=== PATIENT | female | born 1945 | race Caucasian/White ===

== ENCOUNTER 2016-09-01 06:14 | Day surgery (SDC) | payer MEDICARE ==
[~2016-09-01 06:14] MED LIST: CEFAZOLIN 1 GM/D5W RTU 1 GM/50 ML RTUPB IV PRN; DEXTROSE 5%-1/2 NORMAL SALINE 1,000 ML IV PRN
[2016-09-01 07:08] LABS: ABSOLUTE EOSINOPHILS # (AUTO) 0.7 10^3/uL (0.0-0.6); ABSOLUTE LYMPHOCYTES (AUTO) 0.9 10^3/uL (0.5-4.7); ABSOLUTE MONOCYTES (AUTO) 0.3 10^3/uL (0.1-1.4); ABSOLUTE NEUT (AUTO) 2.2 10^3/uL (1.7-8.2); BASOPHILS % (AUTO) 1.2 % (0-2); EOSINOPHILS % (AUTO) 16.3 % (0-6); HEMATOCRIT 30.7 % (36.0-47.0); HEMOGLOBIN 10.2 g/dL (12.0-15.5); HGB HCT DIFFERENCE -0.1; LYMPHOCYTES % (AUTO) 20.9 % (13-45); MEAN CORPUSCULAR HEMOGLOBIN 29.1 pg (27.0-33.4); MEAN CORPUSCULAR HGB CONC 33.2 g/dL (32.0-36.0); MEAN CORPUSCULAR VOLUME 88 fl (80-97); MONOCYTES % (AUTO) 7.7 % (3-13); RED CELL DISTRIBUTION WIDTH 17.9 % (11.5-14.0); SEGMENTED NEUTROPHILS % (AUTO) 53.9 % (42-78); WHITE BLOOD COUNT 4.1 10^3/uL (4.0-10.5)
[2016-09-01 07:25] LABS: PARTIAL THROMBOPLASTIN TIME 47.2 SEC (23.5-35.8)
[2016-09-01] MEDS ORDERED: MIDAZOLAM 2 MG/2 ML INJ ONE (08:06)
[2016-09-01] MEDS ORDERED: FENTANYL CITRATE INJ/PF 100 MCG/2 ML AMPUL ONE (08:07)
--- NOTE | 2016-09-01 08:17 | EKG REPORT ---
SEVERITY:- ABNORMAL ECG - SINUS BRADYCARDIA LEFT VENTRICULAR HYPERTROPHY BORDERLINE T ABNORMALITIES, INFERIOR LEADS : Confirmed by: Raymond Vernon MD 01-Sep-2016 08:16:32
[2016-09-01] MEDS ORDERED: LIDOCAINE 0.5% INJ-PF (5 MG/ML) 50 ML SDV ONE (08:18)
[2016-09-01] MEDS ORDERED: BACITRACIN INJ 50,000 UNIT VIAL IR PRN (08:43)
--- NOTE | 2016-09-01 10:20 | PDOC DISCHARGE SUMMARY ---
Discharge Summary (SDC) - Discharge Final Diagnosis: #1 myeloma. #2 multiple comorbidities. Date of Surgery: 09/01/16 Discharge Date: 09/01/16 Condition: Fair Treatment or Instructions: #1 activities within moderation encouraged. #2 follow up in my office by appointment in about 1 week. Call for appointment. #3 the wounds covered clean and dry until office visit. #4 hold off on school/work until evaluation in office. #5 may shower in 48 hours, keep operated area as dry as possible. #6 discharge from ambulatory when ASU criteria met. #7 medications per medication reconciliation sheet. #8 Percocet by prescription.. Also may have one Percocet up to every 4 hours when necessary for pain greater than 4 out of 10 while in the ASU Prescriptions: Oxycodone HCl/Acetaminophen [Percocet 5-325 mg Tablet] 1 tab PO ASDIR PRN #15 tab PRN Reason: Discharge Diet: As Tolerated Respiratory Treatments at Home: Deep Breathing/Coughing Discharge Activity: Activity As Tolerated Report the Following to Your Physician Immediately: Shortness of Breath, Unusual Bleeding
[2016-09-01 11:50] VITALS: BP 164/65
--- NOTE | 2016-09-01 12:18 | Operative Report ---
Operative Report DATE OF SURGERY: 09/01/16 PREOPERATIVE DIAGNOSIS: #1 Multiple myeloma. #2 multiple comorbidities. POSTOPERATIVE DIAGNOSIS: #1 Multiple myeloma. #2 multiple comorbidities. OPERATION: #1 ultrasound evaluation of the right internal jugular vein. #2 insertion of right sided internal jugular based Port-A-Cath using real-time ultrasound guidance. #3 angiogram and interpretation. SURGEON: TOM MCKENNA LEAD SCIENTIST: none ANESTHESIA: Moderate Sedation TISSUE REMOVED OR ALTERED: None COMPLICATIONS: None ESTIMATED BLOOD LOSS: 5 mL. INTRAOPERATIVE FINDINGS: Satisfactory and apparently safe access into the right internal jugular vein. Good position of the catheter with the tip just slightly down in the right atrium. Easy egress of blood and ingress of heparinized solution through the single port. Contrast flowed from the catheter , into the right atrium. Hardcopy documentation preserved. PROCEDURE: After obtaining informed consent, the patient was taken to the Phlebotomist Lab Assistant and positioned supine. The [right] neck and chest were prepared with chlorhexidine and draped out with sterile linen. After the " universal timeout", in which it was verified that the patient continued to receive antibiotic, the procedure commenced. A steriley sheathed ultrasound probe was used to evaluate the [ right] internal jugular vein. Local anesthesia was infiltrated adjacent to the probe. Access into the [right] internal jugular vein was obtained using a micropuncture needle, followed by micropuncture wire and then a micropuncture catheter. This was followed by introduction of a 0.035 guidewire the tip of which was placed down into the inferior vena cava . The port sites was marked , locally anesthetized and incision made. Dissection now proceeded to the deep subcutaneous subcutaneous tissues so that a pocket for the port was made. Meticulous hemostasis was secured and the catheter was tunneled between the 2 incisions. Proximally, the catheter was now positioned using a peel-away sheath. Distally the catheter was tailored to an appropriate length and then mated to the port using the contained fixating device. The port was now placed in the pocket and the catheter optimally positioned. The port was accessed with a Vann needle and an angiogram done under digital subtraction. The findings as dictated. With adequate and satisfactory positioning, both lumens of the chamber were irrigated with heparinized solution. The wounds were now closed using interrupted 3-0 PDS to the subcutaneous tissues and a continuous subcuticular suture of 4-0 Monocryl to the skin. These are reinforced with Steri-Strips over benzoin and then dressings applied. Time: 0.1 Minute. Dose: 15 Gy Contrast: 5 mls. Isovue 300. Copies of the dictated operative report for Dr. Tom Zapata MD.
== END 2016-09-01 10:55 | disposition home or self-care (01) ==
LOC: CCL 06:14
PROVIDERS: ATTEND Surgery
PROC: 05HM33Z Insertion of Infusion Device into Right Internal Jugular Vein, Percutaneous Approach (ICD-10-PCS; principal; 2016-09-01)
DX: C90.00 Multiple myeloma not having achieved remission (principal); E03.9 Hypothyroidism, unspecified; F41.9 Anxiety disorder, unspecified; M19.90 Unspecified osteoarthritis, unspecified site; I12.9 Hypertensive chronic kidney disease with stage 1 through stage 4 chronic kidney disease, or unspecified chronic kidney disease; N18.9 Chronic kidney disease, unspecified; Z88.8 Allergy status to other drugs, medicaments and biological substances; Z86.73 Personal history of transient ischemic attack (TIA), and cerebral infarction without residual deficits; Z79.899 Other long term (current) drug therapy; Z79.01 Long term (current) use of anticoagulants
CPT/HCPCS: 36415; 85025; 85610; 85730; 36561; 76937; 77001; 71010; 93005; 93010; C1788; Q9967; J2250; J3490 ×2; J0690; J3010; J1644

== ENCOUNTER → 2016-09-23 | Outpatient (CLI) | payer MEDICARE | LOC: RAD 07:13 | PROVIDERS: ATTEND Specialist | DX: C90.00 Multiple myeloma not having achieved remission (principal) | CPT/HCPCS: 70470 ==

== ENCOUNTER → 2016-11-27 | Outpatient (CLI) | payer MEDICARE ==
--- NOTE | 2016-11-27 14:19 | RADIOLOGY REPORT (SQ) ---
EXAM DESCRIPTION: CHEST PA/LAT COMPLETED DATE/TIME: 11/27/2016 11:38 am REASON FOR STUDY: CHEST PAIN COMPARISON: AP chest 09/01/2016, 10/27/2014 EXAM PARAMETERS: NUMBER OF VIEWS: two views TECHNIQUE: Digital Frontal and Lateral radiographic views of the chest acquired. RADIATION DOSE: NA LIMITATIONS: none FINDINGS: LUNGS AND PLEURA: No opacities, masses or pneumothorax. No pleural effusion. MEDIASTINUM AND HILAR STRUCTURES: No masses or contour abnormalities. HEART AND VASCULAR STRUCTURES: Heart normal size. No evidence for failure. BONES: No acute findings. HARDWARE: Right jugular central line tip superior vena cava. Clips right upper quadrant post cholecy stectomy OTHER: No other significant finding. IMPRESSION: NO SIGNIFICANT RADIOGRAPHIC FINDING IN THE CHEST. TECHNICAL DOCUMENTATION: JOB ID: [id number] [employer]- All Rights Reserved
== END ==
LOC: RAD 11:18
PROVIDERS: ATTEND Internal Medicine
DX: R07.9 Chest pain, unspecified (principal)
CPT/HCPCS: 71020

== ENCOUNTER → 2016-12-15 | Outpatient (CLI) | payer MEDICARE ==
--- NOTE | 2016-12-15 20:09 | XCELERA REPORT ---
[address] [address] Transthoracic Echocardiogram Report Name: BERONICA AVILES Age: 71 yrs Gender: Female : 1945 Patient Status: Outpatient Patient Location: RAD Study Date: 12/15/2016 11:19 AM Height: 65 in Weight: 166 lb BSA: 1.8 m2 Reason For Study: DYSPNEA Ordering Physician: ANYA RODRIGUEZ Performed By: Saira Argueta Interpretation Summary calcified aortic annulus, not enlarged, aortic sinus 39mm. MIld AV sclerosis, no , but mod AR with no LV enlargement. Mild mitral annular calcification with thickened leaflets, no MS, no MVP and mild MR with mod LA enlargement, RODRIGUE 44.8ml/m2, no LA clot. Mild asymmetric septal hypertrophy of LV with mild hypokinesis, Overall LVEF about 60%, with stage I LV diastolic dysfunction. Normal R heart, with no pulm hypertension. mild TR. RVSP 21. ASD/PFO with min L to R shunt. MMode/2D Measurements \T\ Calculations RVDd: 2.3 cm LVIDd: 5.1 cm FS: 30.4 % Ao root diam: IVSd: 1.2 cm LVIDs: 3.5 cm EDV(Teich): 3.7 cm LVPWd: 1.1 cm 123.6 ml Ao root area: ESV(Teich): 52.5 ml 10.7 cm2 EF(Teich): LA dimension: 57.5 % 3.7 cm LVOT diam: 2.3 cm LA A2Cs: LA A4Cs: LA length: 6.2 cm LVOT area: 4.2 cm2 19.6 cm2 28.4 cm2 LA Vol Index (BP): LA Volume: 76.3 ml 41.8 ml/m2 Doppler Measurements \T\ Calculations MV E max toan: MV P1/2t max toan: Ao V2 max: AI max toan: 63.7 cm/sec 64.2 cm/sec 105.9 cm/sec 352.9 cm/sec MV A max toan: MV P1/2t: 56.6 msec Ao max PG: AI max P.7 cm/sec MVA(P1/2t): 3.9 cm2 4.5 mmHg 49.8 mmHg MV E/A: 0.63 MV dec slope: HUGO(V,D): 4.2 cm2 AI dec slope: 131.6 cm/sec2 332.3 cm/sec2 AI P1/2t: 785.7 msec LV V1 max PG: PA V2 max: TR max toan: 4.4 mmHg 100.7 cm/sec 230.2 cm/sec LV V1 max: PA max P.1 mmHg TR max P.6 cm/sec 21.2 mmHg Left Ventricle The left ventricle is normal in size. There is mild asymmetric left ventricular hypertrophy. The left ventricular ejection fraction is normal. Doppler measurements suggest impaired left ventricular relaxation, which is associated with grade I/IV or mild diastolic dysfunction. There is anteroseptal wall mild hypokinesis. There is no thrombus. Right Ventricle The right ventricle is normal in size, thickness and function. The right ventricular systolic function is normal. Atria The right atrium is normal. The left atrial size is normal. A patent foramen ovale is present. Mitral Valve The mitral valve is normal in structure and function. The mitral valve leaflets are sclerotic and show some degree of functional abnormality. There is no evidence of mitral valve prolapse. There is no mitral valve stenosis. There is a trace amount of mitral regurgitation. Aortic Valve The aortic valve is sclerotic and shows some degree of functional abnormality. The aortic valve opens well. The aortic valve is trileaflet. The aortic valve is moderately calcified. There is no aortic valvular vegetation. There is no aortic valve stenosis. There is a moderate amount of aortic regurgitation. Tricuspid Valve The tricuspid is normal in structure and function. There is no tricuspid valve prolapse. There is no tricuspid stenosis. Right ventricular systolic pressure is normal. There is a mild amount of tricuspid regurgitation. Best estimated RVSP is approximately 21 mm/Hg. Pulmonic Valve The pulmonic valve is not well visualized. There is no pulmonic valvular regurgitation. Great Vessels The aortic root is normal size. Effusions There is no pericardial effusion. There is no pleural effusion. I WMSI = 1.31 % Normal = 69 Segments Size X - Cannot 1 - Normal 2 - 3 - Akinetic4 - 1-2 small Interpret Hypokinetic Dyskinetic 3-5 moderate 5 - 6-14 large Aneurysmal 15-16 diffuse : ANYA RODRIGUEZ > Raymond Vernon
== END ==
LOC: RAD 10:50
PROVIDERS: ATTEND Student in an Organized Health Care Education/Training Program
DX: C90.00 Multiple myeloma not having achieved remission (principal); R06.09 Other forms of dyspnea
CPT/HCPCS: 93306

== ENCOUNTER → 2016-12-16 | Outpatient (CLI) | payer MEDICARE ==
--- NOTE | 2016-12-16 16:52 | RADIOLOGY REPORT (SQ) ---
EXAM DESCRIPTION: BONE SURVEY COMPLETE COMPLETED DATE/TIME: 12/16/2016 11:23 am REASON FOR STUDY: MYELOMA C90.00 MULTIPLE MYELOMA NOT HAVING ACHIEVED REMISSION COMPARISON: 04/29/2016. TECHNIQUE: Images of the axial and proximal appendicular skeleton are obtained, along with lateral s kull and frontal chest films. LIMITATIONS: None. FINDINGS: AP CHEST: No bony findings. Lungs are clear. LATERAL SKULL: No worrisome bone lesions. AP BOTH HUMERI: No worrisome bone lesions. TWO-VIEW LUMBAR SPINE: No worrisome bone lesions. TWO-VIEW THORACIC SPINE: No worrisome bone lesions. AP PELVIS: No worrisome bone lesions. AP BOTH FEMURS: No worrisome bone lesions. OTHER: Mild general osteopenia. No other significant finding. IMPRESSION: MILD GENERAL OSTEOPENIA. NO WORRISOME BONE LESIONS. TECHNICAL DOCUMENTATION: JOB ID: [id number] [employer]- All Rights Reserved
== END ==
LOC: RAD 10:45
PROVIDERS: ATTEND Internal Medicine Medical Oncology
DX: C90.00 Multiple myeloma not having achieved remission (principal)
CPT/HCPCS: 77075

== ENCOUNTER 2017-02-14 12:05 | Emergency (ER) | payer MEDICARE ==
--- NOTE | 2017-02-14 12:36 | ER Document Report ---
ED Medical Screen (RME) - General Chief Complaint: Weakness Stated Complaint: FALL/WEAKNESS Time Seen by Provider: 02/14/17 12:19 Mode of Arrival: Wheelchair Information source: Patient, Relative Notes: 72-year-old female history of multiple myeloma on Coumadin presents with complaints of generalized weakness dark stools multiple falls I have greeted and performed a rapid initial assessment of this patient. A comprehensive ED assessment and evaluation of the patient, analysis of test results and completion of the medical decision making process will be conducted by additional ED providers. PHYSICAL EXAMINATION: GENERAL: elderly chronically ill appearing HEAD: right frontal contusion EYES: Pupils equal round extraocular movements intact, conjunctiva are normal. ENT: Nares patent NECK: Normal range of motion LUNGS: No respiratory distress Musculoskeletal: Normal range of motion NEUROLOGICAL: Normal speech, normal gait. PSYCH: Normal mood, normal affect. SKIN: Warm, Dry, normal turgor, no rashes or lesions noted. TRAVEL OUTSIDE OF THE [place] IN LAST 30 DAYS: No - Related Data Allergies/Adverse Reactions: promethazine HCl [From Phenergan] Allergy (Verified 02/14/17 12:11) Past Medical History - Past Medical History Cardiac Medical History: Reports: Hx Coronary Artery Disease, Hx Hypercholesterolemia, Hx Hypertension, Hx Heart Murmur Denies: Hx Heart Attack Pulmonary Medical History: Reports: Hx Asthma, Hx Sleep Apnea Denies: Hx Bronchitis, Hx COPD, Hx Pneumonia Neurological Medical History: Reports: Hx Cerebrovascular Accident - X 2. Denies: Hx Seizures Endocrine Medical History: Reports: Hx Hypothyroidism Renal/ Medical History: Reports: Hx Renal Insufficiency. Denies: Hx Peritoneal Dialysis GI Medical History: Reports: Hx Diverticulitis, Hx Gastroesophageal Reflux Disease, Hx Colonoscopy, Hx Endoscopy Musculoskeltal Medical History: Reports Hx Arthritis - B/L HANDS, KNEES, FEET Psychiatric Medical History: Reports: Hx Anxiety, Hx Depression Past Surgical History: Reports: Hx Breast Surgery - RIGHT LUMPECTOMY, Hx Cholecystectomy, Hx Hysterectomy - Immunizations Hx Diphtheria, Pertussis, Tetanus Vaccination: Yes Physical Exam - Vital signs Vitals: Temp Pulse Resp BP Pulse Ox 98.5 F 52 L 20 122/72 100 02/14/17 12:12 02/14/17 12:12 02/14/17 12:12 02/14/17 12:12 02/14/17 12:12 Course - Vital Signs Vital signs: Temp Pulse Resp BP Pulse Ox 98.5 F 52 L 20 122/72 100 02/14/17 12:12 02/14/17 12:12 02/14/17 12:12 02/14/17 12:12 02/14/17 12:12
[2017-02-14 13:14] LABS: APPEARANCE,URINE SLIGHTLY-CLOUDY; BILIRUBIN,URINE NEGATIVE (NEGATIVE); GLUCOSE, URINE NEGATIVE (NEGATIVE); KETONES,URINE NEGATIVE (NEGATIVE); LEUKOCYTE ESTERASE,URINE TRACE (NEGATIVE); NITRITE,URINE NEGATIVE (NEGATIVE); PROTEIN,URINE 30 mg/dL (NEGATIVE); URINE SPECIFIC GRAVITY 1.008; UROBILINOGEN,URINE NEGATIVE mg/dL (<2.0)
[2017-02-14 13:45] LABS: ABSOLUTE EOSINOPHILS # (AUTO) 0.6 10^3/uL (0.0-0.6); ABSOLUTE LYMPHOCYTES (AUTO) 1.1 10^3/uL (0.5-4.7); ABSOLUTE MONOCYTES (AUTO) 0.8 10^3/uL (0.1-1.4); ABSOLUTE NEUT (AUTO) 2.5 10^3/uL (1.7-8.2); BASOPHILS % (AUTO) 0.5 % (0-2); EOSINOPHILS % (AUTO) 12.5 % (0-6); HEMATOCRIT 27.8 % (36.0-47.0); HEMOGLOBIN 9.3 g/dL (12.0-15.5); HGB HCT DIFFERENCE 0.1; LYMPHOCYTES % (AUTO) 21.5 % (13-45); MEAN CORPUSCULAR HEMOGLOBIN 30.7 pg (27.0-33.4); MEAN CORPUSCULAR HGB CONC 33.6 g/dL (32.0-36.0); MEAN CORPUSCULAR VOLUME 91 fl (80-97); MONOCYTES % (AUTO) 15.7 % (3-13); RED BLOOD COUNT 3.04 10^6/uL (3.72-5.28); RED CELL DISTRIBUTION WIDTH 15.7 % (11.5-14.0); SEGMENTED NEUTROPHILS % (AUTO) 49.8 % (42-78)
[2017-02-14 13:56] LABS: PROTHROMBIN TIME 16.3 SEC (11.4-15.4)
[2017-02-14 14:02] LABS: ALANINE AMINOTRANSFERASE 11 U/L (9-52); ALBUMIN 2.9 g/dL (3.5-5.0); ALKALINE PHOSPHATASE 54 U/L (38-126); ANION GAP 10 (5-19); ASPARTATE AMINO TRANSFERASE 14 U/L (14-36); BILIRUBIN,DIRECT 0.4 mg/dL (0.0-0.4); BILIRUBIN,TOTAL 0.6 mg/dL (0.2-1.3); BLOOD UREA NITROGEN 19 mg/dL (7-20); CALCIUM 8.5 mg/dL (8.4-10.2); CARBON DIOXIDE 24 mmol/L (22-30); CHLORIDE 104 mmol/L (98-107); CREATININE RESULT 1.27 mg/dL (0.52-1.25); GLUCOSE 107 mg/dL (75-110); TOTAL PROTEIN 5.1 g/dL (6.3-8.2)
[2017-02-14 14:08] LABS: POTASSIUM 3.1 mmol/L (3.6-5.0)
--- NOTE | 2017-02-14 14:20 | ER Document Report ---
ED General - General Mode of Arrival: Wheelchair Information source: Patient, Relative TRAVEL OUTSIDE OF THE [place] IN LAST 30 DAYS: No - HPI Onset: Other - see narrative Associated symptoms: Other - see narrative Similar symptoms previously: Yes Recently seen / treated by doctor: Yes <YANNA BECK - Last Filed: 02/14/17 14:59> <LORENA MIRELES - Last Filed: 02/14/17 17:30> - General Chief Complaint: Weakness Stated Complaint: FALL/WEAKNESS Time Seen by Provider: 02/14/17 12:19 Notes: Patient is a 72-year-old female who presents to the emergency department today with complaints of generalized weakness. Patient states she has been having frequent diarrhea, around 15 times a day. Patient states she has had chronic diarrhea for a long time, over 1 year. Patient has multiple myeloma and is currently on chemotherapy. Patient states she received 2 bags of fluid 2 days ago at a routine oncology visit. Patient states she has had multiple recent falls, hitting her head on the last one. Patient is on Coumadin. Patient also complains of a rash. Patient denies a cough. (YANNA BECK) - Related Data Allergies/Adverse Reactions: promethazine HCl [From Phenergan] Allergy (Verified 02/14/17 12:11) Past Medical History - General Information source: Patient, Relative - Social History Smoking Status: Former Smoker Cigarette use (# per day): No Chew tobacco use (# tins/day): No Frequency of alcohol use: None Drug Abuse: None Lives with: Family Family History: CAD, Malignancy - Past Medical History Cardiac Medical History: Reports: Hx Coronary Artery Disease, Hx Hypercholesterolemia, Hx Hypertension, Hx Heart Murmur Pulmonary Medical History: Reports: Hx Asthma, Hx Sleep Apnea Neurological Medical History: Reports: Hx Cerebrovascular Accident - X 2 Endocrine Medical History: Reports: Hx Hypothyroidism Renal/ Medical History: Reports: Hx Renal Insufficiency GI Medical History: Reports: Hx Diverticulitis, Hx Gastroesophageal Reflux Disease, Hx Colonoscopy, Hx Endoscopy Musculoskeltal Medical History: Reports Hx Arthritis - B/L HANDS, KNEES, FEET Psychiatric Medical History: Reports: Hx Anxiety, Hx Depression Past Surgical History: Reports: Hx Breast Surgery - RIGHT LUMPECTOMY, Hx Cholecystectomy, Hx Hysterectomy - Immunizations Hx Diphtheria, Pertussis, Tetanus Vaccination: Yes Hx Pneumococcal Vaccination: 03/25/14 <YANNA BECK - Last Filed: 02/14/17 14:59> Review of Systems - Review of Systems Constitutional: See HPI, Weakness EENT: See HPI, Nose congestion Cardiovascular: No symptoms reported Respiratory: denies: Cough Gastrointestinal: See HPI, Diarrhea Genitourinary: No symptoms reported Female Genitourinary: No symptoms reported Musculoskeletal: No symptoms reported Skin: See HPI, Rash Hematologic/Lymphatic: No symptoms reported Neurological/Psychological: No symptoms reported -: Yes All other systems reviewed and negative <YANNA BECK - Last Filed: 02/14/17 14:59> Physical Exam - Vital signs Interpretation: Normal - General General appearance: Alert, Other - appears at baseline according to family at bedside - HEENT Head: Normocephalic, Other - see skin exam Eyes: Normal Pupils: PERRL - Respiratory Respiratory status: No respiratory distress Chest status: Nontender Breath sounds: Normal Chest palpation: Normal - Cardiovascular Rhythm: Regular Heart sounds: Normal auscultation Murmur: No - Abdominal Inspection: Normal Distension: No distension Bowel sounds: Normal Tenderness: Nontender Organomegaly: No organomegaly - Back Back: Normal, Nontender - Extremities General upper extremity: Normal ROM, Other - see skin exam. No: Edema General lower extremity: Normal inspection, Normal ROM. No: Edema - Neurological Neuro grossly intact: Yes Cognition: Normal Orientation: AAOx4 [place] Coma Scale Eye Opening: Spontaneous [place] Coma Scale Verbal: Oriented [place] Coma Scale Motor: Obeys Commands [place] Coma Scale Total: 15 Speech: Normal - Psychological Associated symptoms: Normal affect, Normal mood <YANNA BECK - Last Filed: 02/14/17 14:59> <LORENA MIRELES - Last Filed: 02/14/17 17:30> - Vital signs Vitals: Temp Pulse Resp BP Pulse Ox 98.5 F 52 L 20 122/72 100 02/14/17 12:12 02/14/17 12:12 02/14/17 12:12 02/14/17 12:12 02/14/17 12:12 - Skin Notes: Contusion with central abrasion over right forehead. Linear contusion over right dorsal radial forearm with small central skin tear. Small area on upper anterior chest of mild erythema, which appears to be a superficial sunburn, patient states it does not itch. (YANNA BCEK) Course - Laboratory Result Diagrams: 02/14/17 13:34 02/14/17 13:34 <YANNA BECK - Last Filed: 02/14/17 14:59> - Laboratory Result Diagrams: 02/14/17 13:34 02/14/17 13:34 - Diagnostic Test Radiology reviewed: Image reviewed, Reports reviewed - See reevaluation description above <LORENA MIRELES - Last Filed: 02/14/17 17:30> - Re-evaluation Re-evalutation: 02/14/17 17:02 The patient's exam showed a minor contusion to the right forehead, her INR was only 1.23, her CT scan showed air-fluid levels in both ethmoids, both maxillary sinuses, and the left sphenoid sinus. All this is a new finding since October 08, 2016. Chest x-ray does not show acute changes. Thumb shows a small avulsion fracture off the dorsal base of the proximal phalanx at the MCP joint. The patient is on amoxicillin for an upper respiratory tract infection which should be adequate for her sinus disease. She used to take an allergy pill, but stopped when she used CPAP thinking she did not need it. Advised the family that something like Mel might be worthwhile given the amount of sinus disease she has developed. Her urine specific gravity is 1.008, her BUN and creatinine are at or better than her baseline, her white blood cell count is not elevated and does not have a shift. Her potassium level is a little low and she will be encouraged to increase potassium intake. She will take copies of her lab work, x-ray CT scans and reports and follow-up with her primary care provider this week. 02/14/17 17:29 The thumb spica splint was placed on the right forearm wrist hand and thumb to protect the dorsal avulsion fracture of the proximal phalanx at the MCP joint. Bacitracin and Telfa pads were placed prior to cotton roll over the minor skin tears on the dorsal forearm. Splint fits well and provide some level of comfort and good stability at the fracture site. (LORENA MIRELES) - Vital Signs Vital signs: Temp Pulse Resp BP Pulse Ox 98.5 F 52 L 16 116/41 L 96 02/14/17 12:12 02/14/17 12:12 02/14/17 16:40 02/14/17 16:40 02/14/17 16:40 - Laboratory Laboratory results interpreted by me: 02/14/17 02/14/17 02/14/17 12:50 13:34 13:34 RBC 3.04 L Hgb 9.3 L Hct 27.8 L RDW 15.7 H Monocytes % 15.7 H Eosinophils % 12.5 H PT Potassium 3.1 L Creatinine 1.27 H Est GFR ( Amer) 50 L Est GFR (Non-Af Amer) 41 L Total Protein 5.1 L Albumin 2.9 L Urine Protein 30 H Ur Leukocyte Esterase TRACE H 02/14/17 13:34 RBC Hgb Hct RDW Monocytes % Eosinophils % PT 16.3 H Potassium Creatinine Est GFR ( Amer) Est GFR (Non-Af Amer) Total Protein Albumin Urine Protein Ur Leukocyte Esterase Discharge <YANNA BECK - Last Filed: 02/14/17 14:59> <LORENA MIRELES - Last Filed: 02/14/17 17:30> - Discharge Clinical Impression: Generalized weakness, Frequent falls, Inadequate anticoagulation, Subacute pansinusitis, Hypokalemia Fracture of thumb, right, closed Qualifiers: Encounter type: initial encounter Phalanx: proximal Fracture alignment: nondisplaced Qualified Code(s): S62.514A - Nondisplaced fracture of proximal phalanx of right thumb, initial encounter for closed fracture Condition: Stable Disposition: HOME, SELF-CARE Additional Instructions: The CT scan of your head showed extensive sinus disease which is new since September 2016. He should remain on your amoxicillin for this at this time. Your INR was 1.23 today, be sure not to miss your Coumadin dosing and stop vitamin K supplements and foods that have vitamin K. Your potassium was low at 3.1 today, you should increase potassium in your diet for the next several days. You have an avulsion fracture on the dorsal base of the right thumb. This was splinted to protect it to allow it to heal properly. Take the CD of your x-rays and scans and the radiology report, and the lab work with you to see your doctor this week for further evaluation. RETURN TO THE EMERGENCY ROOM IF ANY NEW OR WORSENING SYMPTOMS. Referrals: NAILA DICK MD [Primary Care Provider] - Follow up as needed NARESH EASTON MD [NO LOCAL MD] - Follow up in 3-5 days Scribe Attestation: 02/14/17 17:01 I personally performed the services described in the documentation, reviewed and edited the documentation which was dictated to the scribe in my presence, and it accurately records my words and actions. (LORENA MIRELES) Scribe Documentation - Scribe Written by Scribe:: Servando Levy, 02/14/2017 1512 acting as scribe for :: Lexus <YANNA BECK - Last Filed: 02/14/17 14:59>
[2017-02-14] MEDS ORDERED: NORMAL SALINE 1000 ML 1,000 ML IV ONE (14:40)
[2017-02-14] MEDS ORDERED: ONDANSETRON HCL INJ/PF 4 MG/2 ML SDV IV ONE (14:40)
[2017-02-14] MEDS ORDERED: ACETAMINOPHEN 325 MG TABLET PO ONE (14:41)
--- NOTE | 2017-02-14 15:37 | RADIOLOGY REPORT (SQ) ---
EXAM DESCRIPTION: CT HEAD WITHOUT COMPLETED DATE/TIME: 02/14/2017 3:19 pm REASON FOR STUDY: fall, hit head, on coumadin COMPARISON: CT brain 06/04/2014, 06/05/2014, 09/23/2016 TECHNIQUE: Axial images acquired through the brain without intravenous contrast. Images reviewed wi th bone, brain and subdural windows. Images stored on PACS. All CT scanners at this facility use dose modulation, iterative reconstruction, and/or weight based d osing when appropriate to reduce radiation dose to as low as reasonably achievable (ALARA). [facility]: Dose Right [facility]: CareDose [facility]: Dose Right [facility]: Teradose 4D [facility]: Smart 99degrees Custom RADIATION DOSE: Up-to-date CT equipment and radiation dose reduction techniques were employed. CTDIv ol: 49.0 mGy. DLP: 881 mGy-cm. mGy. LIMITATIONS: None. FINDINGS: VENTRICLES: Normal size and contour. CEREBRUM: No CT evidence of acute large territory ischemic change, acute intracranial hemorrhage, mas s effect, or midline shift. Old stable lacunar infarcts in the right and left basal ganglia. CEREBELLUM: No masses. No hemorrhage. No alteration of density. No evidence for acute infarction. EXTRAAXIAL SPACES: No fluid collections. No masses. ORBITS AND GLOBE: No intra- or extraconal masses. Normal contour of globe without masses. CALVARIUM: No fracture. PARANASAL SINUSES: There are air-fluid levels in the bilateral ethmoid, left sphenoid, and bilateral maxillary sinuses from sinusitis SOFT TISSUES: No mass or hematoma. OTHER: No other significant finding. IMPRESSION: Sinusitis No acute intracranial changes EVIDENCE OF ACUTE STROKE: NO. COMMENT: Quality ID # [id number]: Final reports with documentation of one or more dose reduction techniques (e.g., Automated exposure control, adjustment of the mA and/or kV according to patient size, use of iterative reconstruction technique) TECHNICAL DOCUMENTATION: JOB ID: [id number] [employer]- All Rights Reserved
--- NOTE | 2017-02-14 15:45 | RADIOLOGY REPORT (SQ) ---
EXAM DESCRIPTION: FINGER RIGHT COMPLETED DATE/TIME: 02/14/2017 3:34 pm REASON FOR STUDY: R thumb injury from fall COMPARISON: None. NUMBER OF VIEWS: Three views. TECHNIQUE: AP, lateral, and oblique images acquired of the right thumb. LIMITATIONS: None. FINDINGS: Three views of the right thumb. Bones are osteopenic. There is an avulsion fragment off the dorsal base thumb proximal phalanx, marked on the lateral view with an arrow. No other fractures are identified. Advanced osteoarthritis is present at the thumb interphalangeal j oint and metacarpophalangeal joint. There is soft tissue swelling at the 1st MCP joint. IMPRESSION: Small avulsion fragment off the dorsal base thumb proximal phalanx at the MCP joint. COMMENT: SITE OF TRAUMA/COMPLAINT MARKED/STAMP COMPLETED: Yes TECHNICAL DOCUMENTATION: JOB ID: [id number] [email or web address]- All Rights Reserved
--- NOTE | 2017-02-14 17:04 | RADIOLOGY REPORT (SQ) ---
EXAM DESCRIPTION: CHEST SINGLE VIEW COMPLETED DATE/TIME: 02/14/2017 4:44 pm REASON FOR STUDY: cough, weakness COMPARISON: 11/27/2016 EXAM PARAMETERS: NUMBER OF VIEWS: One view. TECHNIQUE: Single frontal radiographic view of the chest acquired. RADIATION DOSE: NA LIMITATIONS: None. FINDINGS: LUNGS AND PLEURA: No opacities, masses or pneumothorax. No pleural effusion. MEDIASTINUM AND HILAR STRUCTURES: No masses. Contour normal. HEART AND VASCULAR STRUCTURES: Heart normal in size. Normal vasculature. BONES: No acute findings. HARDWARE: Port-A-Cath is unchanged in position OTHER: No other significant finding. IMPRESSION: No significant interval change. No acute findings. Other findings as noted above TECHNICAL DOCUMENTATION: JOB ID: [id number]
[2017-02-14 17:41] VITALS: BP 117/47
== END 2017-02-14 17:41 | disposition home or self-care (01) ==
LOC: ER 12:05
DX: J32.4 Chronic pansinusitis (principal); E87.6 Hypokalemia; R53.1 Weakness; R19.7 Diarrhea, unspecified; Z91.81 History of falling; Z87.891 Personal history of nicotine dependence; Z79.01 Long term (current) use of anticoagulants; W19.XXXA Unspecified fall, initial encounter
CPT/HCPCS: 36591; 99285; 96374; 86900; 86901; 36415; 87040; 86850; 85025; 85610; 80053; 81001; 71010; 73140; 70450; A9270; J2405; J7030

== ENCOUNTER → 2017-07-01 | Outpatient (CLI) | payer MEDICARE ==
--- NOTE | 2017-07-01 11:52 | RADIOLOGY REPORT (SQ) ---
EXAM DESCRIPTION: CT CHEST WITH; CT ABDOMEN IV CONTRAST ONLY COMPLETED DATE/TIME: 07/01/2017 11:19 am REASON FOR STUDY: C90.00 MULTIPLE MYELOMA NOT HAVING ACHIEVED REMISSION C90.00 MULTIPLE MYELOMA NOT HAVING ACHIEVED REMISSION R63.4 ABNORMAL WEIGHT LOSS COMPARISON: Bone survey 12/16/2016, 04/29/2016, 08/24/2015, 05/03/2014 CONTRAST TYPE AND DOSE: contrast/concentration: Isovue 370.00 mg/ml; Total Contrast Delivered: 66.0 ml; Total Saline Delivered: 65.0 ml RENAL FUNCTION: Creatinine 1.4 TECHNIQUE: CT scan of the chest performed using helical scanning technique with dynamic intravenous contrast injection. Images reviewed with lung, soft tissue and bone windows. Reconstructed coronal a nd sagittal MPR images reviewed. All images stored on PACS. CT scan of the abdomen performed with intravenous and without oral contrastusing helical scanning mickey hnique with dynamic intravenous contrast injection. Images reviewed with lung, soft tissue and bone windows. Reconstructed coronal and sagittal MPR images reviewed. Delayed images for evaluation of t he urinary system also acquired and evaluated. All images stored on PACS. All CT scanners at this facility use dose modulation, iterative reconstruction, and/or weight based d osing when appropriate to reduce radiation dose to as low as reasonably achievable (ALARA). [facility]: Dose Right [facility]: CareDose [facility]: Dose Right [facility]: Teradose 4D [facility]: Smart [employer] RADIATION DOSE: CT Rad equipment meets quality standard of care and radiation dose reduction techniq ues were employed. CTDIvol: 4.6 - 6.5 mGy. DLP: 611 mGy-cm. . LIMITATIONS: None. FINDINGS: CHEST: LUNGS AND PLEURA: No opacities, nodules, masses. No pneumothorax. No effusions. HILAR AND MEDIASTINAL STRUCTURES: No identified masses or abnormal nodes. HEART AND VASCULAR STRUCTURES: Mild ectasia, descending thoracic aorta 3.8 cm in diameter. No aortic dissection. No central pulmonary emboli. No pericardial effusion. Incidental finding of an aberra nt right subclavian artery, an anatomic variant HARDWARE: Right-sided permanent central line tip superior vena cava THYROID AND OTHER SOFT TISSUES: No masses. No adenopathy. BONES: No significant finding. OTHER: No other significant finding. ABDOMEN AND PELVIS: LIVER: Normal size. No masses. No dilated ducts. SPLEEN: Normal size. No focal lesions. PANCREAS: No masses. No significant calcifications. No adjacent inflammation or peripancreatic fluid collections. Pancreatic duct not dilated. GALLBLADDER: Surgically absent ADRENAL GLANDS: No significant masses or asymmetry. RIGHT KIDNEY AND URETER: No solid masses. 1 cm right upper pole cortical cyst, 2.4 cm right lower po le cortical cyst. No significant calcification. No hydronephrosis or hydroureter. LEFT KIDNEY AND URETER: No solid masses. No significant calcification. No hydronephrosis or hydrouret er. AORTA AND VESSELS: No aneurysm. No dissection. Renal arteries, SMA, celiac without stenosis. RETROPERITONEUM: No retroperitoneal adenopathy, hemorrhage or masses. BOWEL AND PERITONEAL CAVITY: No masses or inflammatory changes. No free fluid or peritoneal masses. APPENDIX: Not in the field of view ABDOMINAL WALL: No masses. No hernias. BONES: No lytic lesions. There is minimal central upper endplate depression at T12 and L1, new salvatore red to bone survey 12/16/2016. OTHER: No other significant finding. IMPRESSION: Minimal central upper endplate depressions at T12 and L1 without overall vertebral body loss of height. These could be subacute or chronic osteoporotic compressions. Otherwise unremarkable CT scan of the chest and abdomen TECHNICAL DOCUMENTATION: JOB ID: [id number] Quality ID # [id number]: Final reports with documentation of one or more dose reduction techniques (e.g., Au tomated exposure control, adjustment of the mA and/or kV according to patient size, use of iterative reconstruction technique) 2010 [employer]- All Rights Reserved
== END ==
LOC: RAD 10:33
PROVIDERS: ATTEND Internal Medicine Medical Oncology
DX: C90.00 Multiple myeloma not having achieved remission (principal); R63.4 Abnormal weight loss
CPT/HCPCS: 71260; 74160

== ENCOUNTER → 2017-09-29 | Outpatient (CLI) | payer MEDICARE ==
--- NOTE | 2017-09-29 14:30 | RADIOLOGY REPORT (SQ) ---
EXAM DESCRIPTION: LUMBAR SPINE 2 VIEWS COMPLETED DATE/TIME: 09/29/2017 11:39 am REASON FOR STUDY: MULTIPLE MYELOMA IN REMISSION, FUNCTIONAL DIARRHEA C90.01 MULTIPLE MYELOMA IN REM ISSION K59.1 FUNCTIONAL DIARRHEA COMPARISON: 08/15/2014 NUMBER OF VIEWS: Two views. TECHNIQUE: AP and lateral radiographic images acquired of the lumbar spine. LIMITATIONS: None. FINDINGS: Chronic height loss of L5. Alignment is anatomic. No lytic lesions. Mild degenerative c hanges. IMPRESSION: Degenerative change. No lytic lesions. TECHNICAL DOCUMENTATION: JOB ID: [id number] [employer]- All Rights Reserved Reading location - IP/workstation name: [email or web address]
--- NOTE | 2017-09-29 14:31 | RADIOLOGY REPORT (SQ) ---
EXAM DESCRIPTION: T SPINE AP/LAT COMPLETED DATE/TIME: 09/29/2017 11:39 am REASON FOR STUDY: MULTIPLE MYELOMA IN REMISSION, FUNCTIONAL DIARRHEA C90.01 MULTIPLE MYELOMA IN REM ISSION K59.1 FUNCTIONAL DIARRHEA COMPARISON: None. NUMBER OF VIEWS: Two views. TECHNIQUE: AP and lateral radiographic images acquired of the thoracic spine. LIMITATIONS: None. FINDINGS: MINERALIZATION: Osteopenia. ALIGNMENT: Normal. No scoliosis. VERTEBRAE: No fracture or bone lesion. Maintained height, normal segmentation. DISCS: Multilevel disc space narrowing with osteophytes. HARDWARE: None in the spine. MEDIASTINUM AND SOFT TISSUES: Normal heart size and aortic contour. No soft tissue abnormality. VISUALIZED LUNG ALMEIDA: Clear. OTHER: Right-sided port tip overlying SVC. IMPRESSION: No lytic lesions. TECHNICAL DOCUMENTATION: JOB ID: [id number] [employer]- All Rights Reserved Reading location - IP/workstation name: [email or web address]
== END ==
LOC: OD 11:10
PROVIDERS: ATTEND Internal Medicine Medical Oncology
DX: C90.01 Multiple myeloma in remission (principal); K59.1 Functional diarrhea; M47.896 Other spondylosis, lumbar region
CPT/HCPCS: 72070; 72100

== ENCOUNTER → 2018-06-13 | Outpatient (CLI) | payer MEDICARE ==
--- NOTE | 2018-06-14 08:10 | RADIOLOGY REPORT (SQ) ---
EXAM DESCRIPTION: PET CT WHOLE BODY COMPLETED DATE/TIME: 06/13/2018 6:36 pm REASON FOR STUDY: MULTIPLE MYELOMA C90.01 MULTIPLE MYELOMA IN REMISSION COMPARISON: CT chest and abdomen 07/01/2017 RADIONUCLIDE AND DOSE: 11.3 mCi F18 FDG The route of agent administration: Intravenous FASTING BLOOD SUGAR: 90 mg/dl CONTRAST TYPE AND DOSE: No CT contrast given. TECHNIQUE: Blood glucose level was verified. Above dose of FDG was injected intravenously. 2-D seg mented attenuation correction images were obtained through the entire body. Noncontrast CT images we re obtained for attenuation correction and fusion with emission images. CT images were performed wit hout oral or intravenous contrast and are not sensitive for parenchymal lesions. A series of overlap ping emission PET images were obtained. Images reviewed and manipulated at independent work station by the radiologist. Images stored on PACS. LIMITATIONS: None. FINDINGS: HEAD AND NECK: No areas of abnormal metabolic activity in the soft tissues of the head and neck. CHEST: No areas of abnormal metabolic activity in the chest. ABDOMEN AND PELVIS: No areas of abnormal metabolic activity in the abdomen or pelvis. Expected physi ologic activity is present in the genitourinary system and bowel. LOWER EXTREMITIES: No areas of abnormal metabolic activity in the soft tissues of the lower extremiti es. BONES: No abnormal metabolic activity in the visualized skeleton. ADDITIONAL CT FINDINGS: A aberrant right subclavian artery, an anatomic variant. Stable ectasia prox imal descending thoracic aorta, 3.8 cm in diameter. Right permanent central line. Post cholecystect santino appendectomy and hysterectomy. Right lower pole 2.4 cm simple cyst. OTHER: No other significant findings. IMPRESSION: No skeletal uptake worrisome for multiple myeloma. TECHNICAL DOCUMENTATION: JOB ID: [id number]- All Rights Reserved Reading location - IP/workstation name: [email or web address]
== END ==
LOC: RAD 14:43
PROVIDERS: ATTEND Internal Medicine Medical Oncology
DX: C90.01 Multiple myeloma in remission (principal)
CPT/HCPCS: 78816; A9552

== ENCOUNTER 2018-08-16 11:08 | Day surgery (SDC) | payer MEDICARE ==
[~2018-08-16 11:08] MED LIST changes: -CEFAZOLIN 1 GM/D5W RTU 1 GM/50 ML RTUPB IV PRN; -DEXTROSE 5%-1/2 NORMAL SALINE 1,000 ML IV PRN; +PROPOFOL INJ 200 MG/20 ML VIAL IV ONE
[2018-08-16] MEDS ORDERED: NORMAL SALINE 10 ML SDV (AFTER EACH USE) IV PRN (12:00)
--- NOTE | 2018-08-16 13:08 | Operative Report ---
Operative Report DATE OF SURGERY: 08/16/18 Operative Report: The risks benefits and alternatives of the procedure explained to the patient in detail and informed consent is obtained.A GIF Olympus video scope was inserted into the patient's mouth and hypopharynx, the esophagus is identified intubated and insufflated, the scope was then advanced through the esophagus stomach and duodenum, retroflexion maneuver is done, the esophagus stomach and first and second portions of the duodenum examined. PREOPERATIVE DIAGNOSIS: Epigastric pain. History of GI bleeding POSTOPERATIVE DIAGNOSIS: Gastric erosion, gastritis status post biopsy rule out Helicobacter pylori OPERATION: EGD with biopsy SURGEON: SARAH THOMSNO ANESTHESIA: LMAC TISSUE REMOVED OR ALTERED: As noted above. COMPLICATIONS: None. ESTIMATED BLOOD LOSS: None. INTRAOPERATIVE FINDINGS: As noted above. PROCEDURE: Patient tolerated the procedure well. No immediate postprocedure complications are noted. Patient discharged in good condition. Discharge date 08/16/2018. Discharge diet: Regular. Discharge activity: Regular. 2-3-week follow-up to discuss findings. Patient is instructed call the office or proceed to the emergency room should there be any further proximal questions. If there is any persistent bleeding then colonoscopy is indicated.
[2018-08-16 14:21] VITALS: BP 177/60
[2018-08-16] MEDS ORDERED: NORMAL SALINE 10 ML SDV (SCHEDULED) IV SCH (22:00)
== END 2018-08-16 12:52 | disposition home or self-care (01) ==
LOC: END 11:08
PROVIDERS: ATTEND Internal Medicine Gastroenterology
DX: K25.0 Acute gastric ulcer with hemorrhage (principal); K29.50 Unspecified chronic gastritis without bleeding; D50.9 Iron deficiency anemia, unspecified; C90.01 Multiple myeloma in remission; Z86.73 Personal history of transient ischemic attack (TIA), and cerebral infarction without residual deficits
CPT/HCPCS: 43239; 88305 ×2; J2704; 731

== ENCOUNTER 2019-04-12 23:21 | Inpatient (IN) | payer MEDICARE ==
--- NOTE | 2019-04-12 23:38 | ER Document Report ---
ED Neuro Symptoms/Deficit - General Chief Complaint: S/S of Possible Stroke Stated Complaint: POSS STROKE Time Seen by Provider: 04/12/19 23:25 Mode of Arrival: Stretcher Information source: Patient, Emergency Med Personnel TRAVEL OUTSIDE OF THE [place] IN LAST 30 DAYS: No - HPI Patient complains to provider of: Facial Droop, Speech Impairment, Weakness Onset: Just prior to arrival Symptoms are: Intermittent episodes Duration: Gone now Severity: Moderate Loss of consciousness: No loss of consciousness Baseline Cognitive: Alert, oriented X 3 Baseline Gait: Uses a cane/walker Pre-existing weakness: Lower extremity - Left leg due to old CVA. Patient Orientation: Person, Place, Time, Events New weakness: RUE Altered sensation: denies: LUE, LLE, RUE, RLE, L facial, R facial, General (diffuse) Impaired speech/swallowing: Difficult - Totally resolved now Similar symptoms previously: Yes - Yesterday Notes: Patient has had a past stroke several years ago and has some minimal residual motor impairment restricted to her left lower extremity. She ambulates with a cane. She has had symptoms what sound like TIAs yesterday and again tonight. By the time she got here tonight her new symptoms have totally resolved. She complains of a minimal dull generalized headache. Patient says she regularly takes Eliquis and has been compliant with this medication. Pertinent past history includes a history of multiple myeloma. - Related Data Allergies/Adverse Reactions: promethazine HCl [From Phenergan] Allergy (Verified 12/03/18 14:38) Past Medical History - General Information source: Patient, Emergency Med Personnel - Social History Smoking Status: Never Smoker Family History: CAD, CVA, Malignancy - Past Medical History Cardiac Medical History: Reports: Hx Hypercholesterolemia, Hx Hypertension, Hx Heart Murmur Denies: Hx Coronary Artery Disease, Hx Heart Attack Pulmonary Medical History: Reports: Hx Asthma - MILD, HAS INHALER, LAST USED APPROX 6M AGO, Hx Sleep Apnea Denies: Hx Bronchitis, Hx COPD, Hx Pneumonia Neurological Medical History: Reports: Hx Cerebrovascular Accident - X2, MAY 2014, vision deficit L eye, slower movement on L . Denies: Hx Seizures Endocrine Medical History: Reports: Hx Hypothyroidism Renal/ Medical History: Reports: Hx Renal Insufficiency. Denies: Hx Peritoneal Dialysis Malignancy Medical History: Reports: Other - Multiple myeloma GI Medical History: Reports: Hx Diverticulitis, Hx Gastroesophageal Reflux Disease, Hx Colonoscopy, Hx Endoscopy Musculoskeletal Medical History: Reports Hx Arthritis - OSTEOARTHRITIS Psychiatric Medical History: Reports: Hx Anxiety, Hx Depression Past Surgical History: Reports: Hx Breast Surgery - RIGHT LUMPECTOMY, Hx Cholecystectomy, Hx Hysterectomy - Immunizations Hx Diphtheria, Pertussis, Tetanus Vaccination: - UNKNOWN Hx Pneumococcal Vaccination: 03/25/14 Review of Systems - Review of Systems Notes: Constitutional: Negative for fever. HENT: Negative for sore throat. Eyes: Negative for visual changes. Cardiovascular: Negative for chest pain. Respiratory: Negative for shortness of breath. Gastrointestinal: Negative for abdominal pain, vomiting or diarrhea. Genitourinary: Negative for dysuria. Musculoskeletal: Negative for back pain. Skin: Negative for rash. Neurological: As per HPI. 10 point ROS negative except as marked above and in HPI. Physical Exam - Vital signs Notes: GENERAL: Elderly female appearing in no acute distress. She is awake and alert with fluent speech. SKIN: Good turgor no rashes. HEAD: Normocephalic atraumatic. EYES: PERRLA. Conjunctivae and sclerae clear. EARS: CANALS AND TMS CLEAR. NOSE: CLEAR. MOUTH: Moist mucosa. Good dentition. No stridor or edema. No drooling. Throat: Clear. Gag intact. NECK: Supple. No masses or thyromegaly. No adenopathy. Carotids 2+ without bruits. No JVD. BACK: Symmetrical without tenderness. CHEST: Respirations unlabored. Breath sounds clear and symmetrical. HEART: Regular rhythm. Grade 2/6 systolic murmur without gallop or rub. ABDOMEN: Soft nontender without masses, organomegaly or rebound. Bowel sounds normally active. No bruits. GENITALIA: Deferred. EXTREMITIES: Advanced degenerative changes interphalangeal joints of both hands no edema. No calf tenderness. Cap refill less than 1.5 seconds. Dorsalis pedis and posterior tibial pulses 3+ and symmetrical. NEUROLOGICAL: GCS 15. Alert and oriented x3. Normal gait. Fluent speech without slurring. Cranial nerves II through XII intact. Sensation is intact throughout. Muscular strength is 5/5 both upper extremities and right lower extremity. Muscular strength is 4/5 left lower extremity which patient attrib utes to prior stroke baseline. Normal tone. Psychiatric: Appropriate affect. Course - Re-evaluation Re-evalutation: 04/12/19 23:41 Current episode appears to be a TIA and I would be concerned about garland TIAs given the history of a similar episode yesterday for which she apparently did not choose to seek medical attention. Clinically I do not believe she has had a new stroke. We are getting a stat noncontrast head CT on the stroke protocol and will examine the patient serially. 04/13/19 01:01 Patient will be admitted and is to have a brain MRI. She IS NOT a candidate for TPA as this appears primarily to be a TIA. - Laboratory Result Diagrams: 04/12/19 23:35 04/12/19 23:35 - Diagnostic Test Radiology reviewed: Reports reviewed - EKG Interpretation by Me EKG shows normal: Sinus rhythm Rate: Bradycardia Additional EKG results interpreted by me: 04/13/19 00:01 Changes consistent with LVH unchanged as compared with prior tracing from 12/03/2018. ED Alteplase Inc/Exc Criteria - Inclusion Criteria: 1: Patient presented to ED within 3 hours of acute ischemic stroke symptom onset? 2: Did baseline CT exclude intracranial hemorrhage and/or other risk factors? 3: Is the age of the patient 18 years of age or greater? : If any of the above questions are answered "NO" then stop, patient is not a candidate for Alteplase, : If all of the above questions are answered "YES" then continue with Exclusion Criteria. - Exclusion Criteria: 1: Is there evidence of intracranial hemorrhage on baseline CT? 2: Is there suspicion of subarachnoid hemorrhage (even if CT negative)? 3: Is there a history of serious head trauma, recent previous stroke or LA within 3 months? 4: Does the patient have a clinical presentation consistent with LA or post-LA pericarditis? 5: Is there history of intracranial hemorrhage? 6: On repeated measurement is Systolic BP greater than 185mmHg or Diastolic BP greater that 110 mmHg and is aggressive treatment needed to reduce blood pressure to these limits (e.g. constant infusion of an anti-hypertensive)? 7: Did the patient awake with stroke symptoms? 8: Has the patient had a lumbar puncture or an arterial puncture at a non- compressile site within 7 days? 9: With in the last 14 days did the patient have surgery or major trauma? 10: Is the patient or less than 2 weeks? 11: Was there any active bleeding or acute trauma? 12: Does the patient have intracranial neoplasm, arteriovenous malformation or aneurysm? 13: Does the patient have abnormal glucose (less than 50 or greater than 400mg/dl)? Record glucose in Comment. 14: Patient has rapidly improving symptoms at the time Alteplase is to be Administered. 15: Does the patient have any risks for bleeding, including but not limited to: a.: Current use of Coumadin with PT greater than 15 seconds or INR greater than 1.7. b.: Current use of Pradaxa (Dabigatran). c.: Heparin administereed within the past 48 hours and PTT elevated. d.: Platelet count less than 100,000/mm. e.: Major surgery or serious trauma within 14 days. f.: Gastrointestinal or gynecological urinary bleeding within 14 days. g.: Myocardial Infarction (LA) within 3 months. : If the answer to any of the above questions is "YES" then stop, the patient is not a candidate for Alteplase. : If the answer to all of the above questions is "NO" then the patient may be eligible for the Administration of Alteplase. : If the patient is noted to have seizure activity at onset of Stroke symptoms; Consult Neurologist for further evaluation. - The patient is: -: Included and is eligible to receive Alteplase. *Initiate bed placement at higher level of care* Reviewed risks & benefits of thrombolytic therapy: I have reviewed the risks and benefits of thrombolytic therapy with the patient and/or his/her family. -: Excluded and not eligible to receive Alteplase for the above exclusions. -: Excluded and not eligible to receive Alteplase for other reasons (specify in comments): - Diagnosis of TIA: -: Patient presented with transient symptoms that are now resolved and no other neurologic findings are currently present. List symptoms in comments. -: Yes -: Patient is NOT a candidate for tPA. -: Yes -: ____(put name in comment) has been consulted for admission and continued evaluation of risk factor assessment. Comment: Dr. Santino Soares will admit Discharge - Discharge Clinical Impression: TIA (transient ischemic attack) Condition: Serious Disposition: ADMITTED INPATIENT Admitting Provider: Rodger (Hospitalist) Unit Admitted: [facility]
[2019-04-12] MEDS ORDERED: CLONIDINE HCL 0.2 MG TABLET PO ONE (23:47)
[2019-04-12] MEDS ORDERED: OXYCODONE-ACETAMINOPHEN 5-325 MG TABLET PO ONE (23:48)
[2019-04-12 23:52] LABS: ABSOLUTE EOSINOPHILS # (AUTO) 0.1 10^3/uL (0.0-0.6); ABSOLUTE MONOCYTES (AUTO) 0.5 10^3/uL (0.1-1.4); ABSOLUTE NEUT (AUTO) 2.8 10^3/uL (1.7-8.2); BASOPHILS % (AUTO) 0.6 % (0-2); EOSINOPHILS % (AUTO) 1.6 % (0-6); HEMATOCRIT 33.5 % (36.0-47.0); HEMOGLOBIN 10.9 g/dL (12.0-15.5); LYMPHOCYTES % (AUTO) 36.9 % (13-45); MEAN CORPUSCULAR HEMOGLOBIN 29.2 pg (27.0-33.4); MEAN CORPUSCULAR HGB CONC 32.6 g/dL (32.0-36.0); MEAN CORPUSCULAR VOLUME 90 fl (80-97); MONOCYTES % (AUTO) 8.5 % (3-13); PLATELET COUNT 160 10^3/uL (150-450); RED BLOOD COUNT 3.74 10^6/uL (3.72-5.28); RED CELL DISTRIBUTION WIDTH 14.1 % (11.5-14.0); SEGMENTED NEUTROPHILS % (AUTO) 52.4 % (42-78); TOTAL CELLS COUNTED % (AUTO) 100 %; WHITE BLOOD COUNT 5.4 10^3/uL (4.0-10.5)
--- NOTE | 2019-04-12 23:54 | RADIOLOGY REPORT (SQ) ---
EXAM DESCRIPTION: RadLex: CT HEAD WITHOUT IV CONTRAST CLINICAL HISTORY: 74 years Female; s/s stroke; right-sided weakness TECHNIQUE: Noncontrast CT head. All CT scans at this facility use dose modulation, iterative reconstruction, and/or weight based dosing when appropriate to reduce radiation dose to as low as reasonably achievable. COMPARISON: CT 12/03/2018 FINDINGS: Old focal infarct in the right occipital lobe is again noted. There is also an old lacunar infarct in the posterior limb of the right internal capsule and adjacent to the left caudate head. No acute hemorrhage or mass effect. There is a very subtle 4 mm hypodensity in the posterior limb of the left internal capsule that was not present on the prior exam. Visualized portions of paranasal sinuses and mastoids are clear. Visualized portions of the calvarium are within normal limits. THIS REPORT CONTAINS FINDINGS THAT MAY BE CRITICAL TO PATIENT CARE: The findings were verbally discussed via telephone conference with GABBI MCCARTY at 10:49 PM CRNP on 04/12/2019 . IMPRESSION: 1. No acute hemorrhage or mass effect 2. Subtle 4 mm hypodensity in the posterior limb of the left internal capsule may represent an acute or subacute lacunar infarct. MRI would provide more definitive characterization. 3. Old basal ganglia infarcts and right occipital infarct, as seen on prior exam.
[2019-04-12 23:59] LABS: INTERNATIONAL RATION (INR) 1.44; PROTHROMBIN TIME 17.6 SEC (11.4-15.4)
[2019-04-13] LABS: ALKALINE PHOSPHATASE 62 U/L (38-126); ANION GAP 10 (5-19); ASPARTATE AMINO TRANSFERASE 33 U/L (14-36); BILIRUBIN,DIRECT 0.2 mg/dL (0.0-0.4); BILIRUBIN,TOTAL 0.4 mg/dL (0.2-1.3); BLOOD UREA NITROGEN 23 mg/dL (7-20); CALCIUM 9.1 mg/dL (8.4-10.2); CARBON DIOXIDE 26 mmol/L (22-30); CHLORIDE 109 mmol/L (98-107); CREATINE KINASE 50 U/L (30-135); GLUCOSE 103 mg/dL (75-110); PARTIAL THROMBOPLASTIN TIME 40.1 SEC (23.5-35.8); POTASSIUM 3.7 mmol/L (3.6-5.0); TOTAL PROTEIN 6.6 g/dL (6.3-8.2)
--- NOTE | 2019-04-13 00:05 | RADIOLOGY REPORT (SQ) ---
EXAM DESCRIPTION: RadLex: XR CHEST 1 VIEW CLINICAL HISTORY: 74 years Female, s/s stroke COMPARISON: 02/14/2017 FINDINGS: Lungs are clear, with no focal infiltrate, pneumothorax, or pleural effusion. No pulmonary nodules. There is mild right apical scarring, unchanged. Right IJ port remains in place, tip in the SVC. There is minimal aortic calcification. Heart size is normal. No mediastinal widening. Bony structures are unremarkable. IMPRESSION: 1. No acute pulmonary findings. 2. Right IJ port, tip in the SVC, as on prior exam.
[2019-04-13 00:22] LABS: CREATINE KINASE MB 1.53 ng/mL (<4.55)
[2019-04-13 00:25] LABS: TROPONIN I < 0.012 ng/mL
[2019-04-13] MEDS ORDERED: DOCUSATE SODIUM 100 MG CAPSULE PO PRN (00:54)
[2019-04-13] MEDS ORDERED: MAGNESIUM HYDROXIDE SUSP 30 ML UDCUP PO PRN (00:54)
[2019-04-13] MEDS ORDERED: ACETAMINOPHEN 325 MG TABLET PO PRN (00:54)
[2019-04-13] MEDS ORDERED: HYDRALAZINE HCL INJ/PF 20 MG/1 ML SDV IV PRN (00:59)
[2019-04-13] MEDS ORDERED: ATORVASTATIN CALCIUM 80 MG TABLET PO SCH ×2 (01:00→22:00)
[2019-04-13] MEDS ORDERED: ATORVASTATIN CALCIUM 80 MG TABLET PO ONE (01:30)
--- NOTE | 2019-04-13 06:27 | PDOC H&P ---
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 Patient presents to the emergency room after an episode of slurred speech and left lower extremity weakness starting 12 hours prior to presentation. She denies missing Xarelto or regular medications. She presents 12 hours after the onset of slurred speech and left-sided weakness. With a systolic blood pressure in the 180s. CBC, total protein, calcium is unremarkable. She receives aspirin and referred to the hospitalist for admission. Patient states her symptoms are improving. Past Medical History Cardiac Medical History: Reports: Hyperlipidema, Hypertension, Heart Murmur Denies: Coronary Artery Disease, Myocardial Infarction Pulmonary Medical History: Reports: Asthma - MILD, HAS INHALER, LAST USED APPROX 6M AGO, Sleep Apnea Denies: Bronchitis, Chronic Obstructive Pulmonary Disease (COPD), Pneumonia Neurological Medical History: Denies: Seizures Endocrine Medical History: Reports: Hypothyroidism Malignancy Medical History: Reports: Other - Multiple myeloma GI Medical History: Reports: Diverticulitis, Gastroesophageal Reflux Disease Musculoskeltal Medical History: Reports: Arthritis - OSTEOARTHRITIS Psychiatric Medical History: Reports: Depression Hematology: Reports: Anemia - IRON INFUSION X2 JUL 13 Past Surgical History Past Surgical History: Reports: Cholecystectomy, Hysterectomy Social History Information Source: Patient Smoking Status: Never Smoker Electronic Cigarette use?: No Frequency of Alcohol Use: None Hx Recreational Drug Use: No Hx Prescription Drug Abuse: No - Advance Directive Resuscitation Status: Full Code Family History Family History: CAD, CVA, Malignancy Parental Family History Reviewed: Yes Children Family History Reviewed: Yes Sibling(s) Family History Reviewed.: Yes Medication/Allergy Home Medications: Temazepam 15 mg PO QPM 09/02/14 Rivaroxaban [Xarelto] 20 mg PO QHS 08/13/18 Albuterol Sulfate [Proair Hfa Inhalation Aerosol 8.5 gm Mdi] 2 puff IH PRN PRN 08/16/18 Losartan Potassium [Cozaar 100 mg Tablet] 100 mg PO DAILY 08/16/18 Atenolol [Tenormin 50 mg Tablet] 75 mg PO QAM 04/13/19 Duloxetine HCl [Cymbalta] 60 mg PO QAM 04/13/19 Levothyroxine Sodium [Synthroid 0.075 mg Tablet] 0.075 mg PO QAM 04/13/19 Valacyclovir HCl [Valtrex 500 Mg Tablet] 500 mg PO QAM 04/13/19 Allergies/Adverse Reactions: promethazine HCl [From Phenergan] Allergy (Intermediate, Verified 04/13/19 01:20) Review of Systems Constitutional: ABSENT: chills, fever(s), headache(s), weight gain, weight loss Eyes: ABSENT: visual disturbances Ears: ABSENT: hearing changes Cardiovascular: ABSENT: chest pain, dyspnea on exertion, edema, orthropnea, palpitations Respiratory: ABSENT: cough, hemoptysis Gastrointestinal: ABSENT: abdominal pain, constipation, diarrhea, hematemesis, hematochezia, nausea, vomiting Genitourinary: ABSENT: dysuria, hematuria Musculoskeletal: ABSENT: joint swelling Integumentary: ABSENT: rash, wounds Neurological: ABSENT: abnormal gait, abnormal speech, confusion, dizziness, focal weakness, syncope Psychiatric: ABSENT: anxiety, depression, homidical ideation, suicidal ideation Endocrine: ABSENT: cold intolerance, heat intolerance, polydipsia, polyuria Hematologic/Lymphatic: ABSENT: easy bleeding, easy bruising Physical Exam Vital Signs: Temp Pulse Resp BP Pulse Ox 97.8 F 44 L 14 164/55 H 96 04/12/19 23:40 04/12/19 23:31 04/13/19 05:01 04/13/19 05:01 04/13/19 05:01 Intake & Output 04/11/19 04/12/19 04/13/19 11:59 11:59 11:59 Weight 72.7 kg General appearance: PRESENT: no acute distress, cooperative, well-developed, well-nourished Head exam: PRESENT: atraumatic, normocephalic Eye exam: PRESENT: conjunctiva pink, EOMI, PERRLA. ABSENT: scleral icterus Ear exam: PRESENT: normal external ear exam Mouth exam: PRESENT: moist, tongue midline Neck exam: ABSENT: carotid bruit, JVD, lymphadenopathy, thyromegaly Respiratory exam: PRESENT: clear to auscultation olesya. ABSENT: rales, rhonchi, wheezes Cardiovascular exam: PRESENT: RRR. ABSENT: diastolic murmur, rubs, systolic murmur Pulses: PRESENT: normal dorsalis pedis pul Vascular exam: PRESENT: normal capillary refill GI/Abdominal exam: PRESENT: normal bowel sounds, soft. ABSENT: distended, guarding, mass, organolmegaly, rebound, tenderness Rectal exam: PRESENT: deferred Extremities exam: PRESENT: full ROM, other - 4+ out of 5 strength in the left side. ABSENT: calf tenderness, clubbing, pedal edema Neurological exam: PRESENT: alert, awake, oriented to person, oriented to place, oriented to time, oriented to situation, CN II-XII grossly intact, other - 4+ out of 5 strength in the left side. ABSENT: motor sensory deficit, aphasic Psychiatric exam: PRESENT: appropriate affect, normal mood. ABSENT: homicidal ideation, suicidal ideation Skin exam: PRESENT: dry, intact, warm. ABSENT: cyanosis, rash Results Laboratory Results: 04/12/19 23:35 04/12/19 23:35 04/12/19 04/12/19 23:35 23:35 WBC 5.4 RBC 3.74 Hgb 10.9 L Hct 33.5 L MCV 90 MCH 29.2 MCHC 32.6 RDW 14.1 H Plt Count 160 Seg Neutrophils % 52.4 Sodium 144.9 Potassium 3.7 Chloride 109 H Carbon Dioxide 26 Anion Gap 10 BUN 23 H Creatinine 1.55 H Est GFR ( Amer) 39 L Glucose 103 Calcium 9.1 Total Bilirubin 0.4 AST 33 Alkaline Phosphatase 62 Total Protein 6.6 Albumin 4.0 04/12/19 04/12/19 23:35 23:35 Creatine Kinase 50 CK-MB (CK-2) 1.53 Troponin I < 0.012 Impressions: Chest X-Ray 04/12/19 23:22 IMPRESSION: 1. No acute pulmonary findings. 2. Right IJ port, tip in the SVC, as on prior exam. Head CT 04/12/19 23:22 IMPRESSION: 1. No acute hemorrhage or mass effect 2. Subtle 4 mm hypodensity in the posterior limb of the left internal capsule may represent an acute or subacute lacunar infarct. MRI would provide more definitive characterization. 3. Old basal ganglia infarcts and right occipital infarct, as seen on prior exam. Assessment and Plan - Diagnosis (1) TIA (transient ischemic attack) Is this a current diagnosis for this admission?: Yes Plan: CVA care set deployed, likely secondary to hypertension, aspirin, Lipitor ordered, follow-up MRI and carotid Doppler (2) Hypertension Is this a current diagnosis for this admission?: Yes Plan: Permissive hypertension (3) Bradycardia Is this a current diagnosis for this admission?: Yes Plan: Avoid rate limiting medication, follow telemetry monitoring (4) CKD (chronic kidney disease) stage 3, GFR 30-59 ml/min Is this a current diagnosis for this admission?: Yes Plan: At baseline avoid nephrotoxic meds and doses, follow-up chemistry - Time Time Spent with patient: 25-34 minutes - Inpatient Certification Medical Necessity: Need Close Monitoring Due to Risk of Patient Decompensation
[2019-04-13 07:13] LABS: APPEARANCE,URINE CLEAR; BILIRUBIN,URINE NEGATIVE (NEGATIVE); COLOR,URINE STRAW; GLUCOSE, URINE NEGATIVE (NEGATIVE); KETONES,URINE NEGATIVE (NEGATIVE); LEUKOCYTE ESTERASE,URINE TRACE (NEGATIVE); NITRITE,URINE NEGATIVE (NEGATIVE); PROTEIN,URINE NEGATIVE (NEGATIVE); URINE SPECIFIC GRAVITY 1.006; UROBILINOGEN,URINE NEGATIVE mg/dL (<2.0)
--- NOTE | 2019-04-13 07:42 | EKG REPORT ---
SEVERITY:- ABNORMAL ECG - SINUS BRADYCARDIA 42 LVH WITH SECONDARY REPOLARIZATION ABNORMALITY : Confirmed by: Raymond Vernon MD 13-Apr-2019 07:41:50
--- NOTE | 2019-04-13 11:00 | RADIOLOGY REPORT (SQ) ---
EXAM DESCRIPTION: MRI HEAD WITHOUT COMPLETED DATE/TIME: 04/13/2019 8:47 am REASON FOR STUDY: cva COMPARISON: MRI of the brain without contrast from a 06/04/2014. TECHNIQUE: Multiplanar imaging includes non-contrasted T1, T2, FLAIR, and diffusion with ADC map seq uences. Images stored on PACS. LIMITATIONS: None. FINDINGS: There is no restricted diffusion on the DWI. The confluent areas of high T2/FLAIR signal within the supratentorial periventricular and subcortical white matter are unchanged and could repres ent the sequela of chronic microvascular ischemia. The foci of high T2/FLAIR signal within the basal ganglia represent chronic lacunar infarcts. There is no blooming artifact on the gradient sequence. There is no extra-axial fluid collection, mass, mass effect or midline shift. There is no effaceme nt of cerebral sulci or basal subarachnoid cisterns. The mazariegos-white matter differentiation is preser jas. The caliber of the ventricles is concordant with the degree of sulcation. The corpus callosum, craniocervical junction, and sella turcica are normal in appearance. The intracranial vascular flow voids are preserved. The orbits and globes are normal in appearance. There is hyperostosis frontalis interna. The high T2 signal within the right frontal bone is unchange d from 06/04/2014. IMPRESSION: Sequela of chronic ischemia without an acute intracranial abnormality. EVIDENCE OF ACUTE STROKE: NO. TECHNICAL DOCUMENTATION: JOB ID: [id number] [employer]- All Rights Reserved Reading location - IP/workstation name: [email or web address]
[2019-04-13 13:57] VITALS: BP 102/74
--- NOTE | 2019-04-13 15:01 | RADIOLOGY REPORT (SQ) ---
EXAM DESCRIPTION: CAROTID DOPPLER COMPLETED DATE/TIME: 04/13/2019 1:44 pm REASON FOR STUDY: cva COMPARISON: MRI brain 04/21/2019 CT brain 04/12/2019, 12/03/2018 Carotid Doppler 06/05/2014 TECHNIQUE: Grayscale ultrasound, Doppler velocity and spectra, and color Doppler images acquired of the extra-cranial carotid and vertebral arteries. Images stored on PACS. LIMITATIONS: None. FINDINGS: RIGHT CAROTID CCA Velocities: Within normal limits. ICA Velocities Peak systolic 0.86 m/s. End diastolic 0.23 m/s. Proximal ICA/CCA peak systolic ratio normal. Spectra normal. No significant plaque. LEFT CAROTID CCA Velocities: Within normal limits. ICA Velocities Peak systolic 0.97 m/s. End diastolic 0.17 m/s. Proximal ICA/CCA peak systolic ratio normal. Spectra normal. No significant plaque. VERTEBRAL ARTERIES: Antegrade flow. Normal waveforms. SUBCLAVIAN ARTERIES: Not evaluated OTHER: No other significant finding. IMPRESSION: NO HEMODYNAMICALLY SIGNIFICANT STENOSIS. COMMENT: Quality ID #[id number]: Velocity criteria are extrapolated from the diameter data as defined by t he Society of Radiologists in Ultrasound Consensus Conference. Radiology 2003: 229; 340-346. TECHNICAL DOCUMENTATION: JOB ID: [id number] [employer]- All Rights Reserved Reading location - IP/workstation name: [email or web address]
--- NOTE | 2019-04-17 17:28 | PDOC DISCHARGE SUMMARY ---
Impression - Admit/DC Date/PCP Admission Date/Primary Care Provider: 04/13/19 01:27 NARESH EASTON MD Discharge Date: 04/13/19 - Discharge Diagnosis (1) Bradycardia Is this a current diagnosis for this admission?: Yes (2) Hypertension Is this a current diagnosis for this admission?: Yes (3) TIA (transient ischemic attack) Is this a current diagnosis for this admission?: Yes (4) CKD (chronic kidney disease) stage 3, GFR 30-59 ml/min Is this a current diagnosis for this admission?: Yes - Additional Information Resuscitation Status: Full Code Discharge Diet: Cardiac, Diabetic Discharge Activity: Activity As Tolerated, Balance Activity w/Rest Referrals: NARESH EASTON MD [Primary Care Provider] - 04/20/19 10:30 am Home Medications: Temazepam 15 mg PO QHS 09/02/14 Rivaroxaban [Xarelto] 20 mg PO QHS 08/13/18 Albuterol Sulfate [Proair HFA Inhalation Aerosol 8.5 gm MDI] 2 puff IH PRN PRN 08/16/18 Losartan Potassium [Cozaar 100 mg Tablet] 100 mg PO DAILY 08/16/18 Acetaminophen [Tylenol 325 mg Tablet] 650 mg PO Q4HP PRN tablet 04/13/19 Atenolol [Tenormin 50 mg Tablet] 75 mg PO DAILY 04/13/19 Cyanocobalamin (Vitamin B-12) [Vitamin B12] 2,500 mcg PO DAILY 04/13/19 Duloxetine HCl [Cymbalta] 60 mg PO DAILY 04/13/19 Levothyroxine Sodium [Synthroid 0.075 mg Tablet] 0.075 mg PO Q6AM 04/13/19 Valacyclovir HCl [Valtrex 500 mg Tablet] 500 mg PO DAILY 04/13/19 History of Present Illiness History of Present Illness: Per H&P by Dr. 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 Patient presents to the emergency room after an episode of slurred speech and left lower extremity weakness starting 12 hours prior to presentation. She denies missing Xarelto or regular medications. She presents 12 hours after the onset of slurred speech and left-sided weakness. With a systolic blood pressure in the 180s. CBC, total protein, calcium is unremarkable. She receives aspirin and referred to the hospitalist for admission. Patient states her symptoms are improving. Hospital Course Hospital Course: The patient was admitted to [facility] on continuous cardiac telemetry. Her symptoms of slurred speech and left-sided weakness resolved rapidly: Per patient and family within 1 hour of onset. Carotid Doppler was negative for hemodynamically significant stenosis. Head MRI was negative for acute stroke; did demonstrate sequela of chronic ischemia without acute intracranial abnormalities. Patient is currently on liquid anticoagulated on Eliquis; been in normal sinus rhythm without murmur therefore no indications for echocardiogram at this time. She met with PT/OT/ST services; which have signed off as the patient has returned to her baseline functional status. She and her family are now requesting discharge home. The patient is discharged home in stable condition into the care of family members. She is advised to follow-up with her primary care provider within 1 week and with her oncologist as previously scheduled. She is instructed to continue her medications unchanged. She is encouraged to return to the emergency department as needed for concerning symptoms. Physical Exam Vital Signs: Temp Pulse Resp BP Pulse Ox 97.6 F 50 L 17 102/74 100 04/13/19 16:33 04/13/19 16:33 04/13/19 16:33 04/13/19 16:33 04/13/19 16:33 General appearance: PRESENT: no acute distress, well-developed, well-nourished Head exam: PRESENT: atraumatic, normocephalic Eye exam: PRESENT: conjunctiva pink, EOMI, PERRLA. ABSENT: scleral icterus Ear exam: PRESENT: normal external ear exam Mouth exam: PRESENT: moist, tongue midline Neck exam: ABSENT: carotid bruit, JVD, lymphadenopathy, thyromegaly Respiratory exam: PRESENT: clear to auscultation olesya. ABSENT: rales, rhonchi, wheezes Cardiovascular exam: PRESENT: RRR. ABSENT: diastolic murmur, rubs, systolic murmur Pulses: PRESENT: normal dorsalis pedis pul Vascular exam: PRESENT: normal capillary refill GI/Abdominal exam: PRESENT: normal bowel sounds, soft. ABSENT: distended, guard ing, mass, organolmegaly, rebound, tenderness Rectal exam: PRESENT: deferred Extremities exam: PRESENT: full ROM. ABSENT: calf tenderness, clubbing, pedal edema Musculoskeletal exam: PRESENT: ambulatory Neurological exam: PRESENT: alert, awake, oriented to person, oriented to place, oriented to time, oriented to situation, CN II-XII grossly intact. ABSENT: motor sensory deficit Psychiatric exam: PRESENT: appropriate affect, normal mood. ABSENT: homicidal ideation, suicidal ideation Skin exam: PRESENT: dry, intact, warm. ABSENT: cyanosis, rash Results Laboratory Results: WBC 5.4 10^3/uL (4.0-10.5) 04/12/19 23:35 RBC 3.74 10^6/uL (3.72-5.28) 04/12/19 23:35 Hgb 10.9 g/dL (12.0-15.5) L 04/12/19 23:35 Hct 33.5 % (36.0-47.0) L 04/12/19 23:35 MCV 90 fl (80-97) 04/12/19 23:35 MCH 29.2 pg (27.0-33.4) 04/12/19 23:35 MCHC 32.6 g/dL (32.0-36.0) 04/12/19 23:35 RDW 14.1 % (11.5-14.0) H 04/12/19 23:35 Plt Count 160 10^3/uL (150-450) 04/12/19 23:35 Lymph % (Auto) 36.9 % (13-45) 04/12/19 23:35 [place] % (Auto) 8.5 % (3-13) 04/12/19 23:35 Eos % (Auto) 1.6 % (0-6) 04/12/19 23:35 Baso % (Auto) 0.6 % (0-2) 04/12/19 23:35 Absolute Neuts (auto) 2.8 10^3/uL (1.7-8.2) 04/12/19 23:35 Absolute Lymphs (auto) 2.0 10^3/uL (0.5-4.7) 04/12/19 23:35 Absolute Monos (auto) 0.5 10^3/uL (0.1-1.4) 04/12/19 23:35 Absolute Eos (auto) 0.1 10^3/uL (0.0-0.6) 04/12/19 23:35 Absolute Basos (auto) 0.0 10^3/uL (0.0-0.2) 04/12/19 23:35 Seg Neutrophils % 52.4 % (42-78) 04/12/19 23:35 PT 17.6 SEC (11.4-15.4) H 04/12/19 23:35 INR 1.44 04/12/19 23:35 APTT 40.1 SEC (23.5-35.8) H 04/12/19 23:35 Sodium 144.9 mmol/L (137-145) 04/12/19 23:35 Potassium 3.7 mmol/L (3.6-5.0) 04/12/19 23:35 Chloride 109 mmol/L (98-107) H 04/12/19 23:35 Carbon Dioxide 26 mmol/L (22-30) 04/12/19 23:35 Anion Gap 10 (5-19) 04/12/19 23:35 BUN 23 mg/dL (7-20) H 04/12/19 23:35 Creatinine 1.55 mg/dL (0.52-1.25) H 04/12/19 23:35 Est GFR ( Amer) 39 (>60) L 04/12/19 23:35 Est GFR (MDRD) Non-Af 33 (>60) L 04/12/19 23:35 Glucose 103 mg/dL (75-110) 04/12/19 23:35 POC Glucose 103 mg/dL (70-110) 04/12/19 23:35 Calcium 9.1 mg/dL (8.4-10.2) 04/12/19 23:35 Total Bilirubin 0.4 mg/dL (0.2-1.3) 04/12/19 23:35 Direct Bilirubin 0.2 mg/dL (0.0-0.4) 04/12/19 23:35 Neonat Total Bilirubin Not Reportable 04/12/19 23:35 Neonat Direct Bilirubin Not Reportable 04/12/19 23:35 Neonat Indirect Bili Not Reportable 04/12/19 23:35 AST 33 U/L (14-36) 04/12/19 23:35 ALT 30 U/L (<35) 04/12/19 23:35 Alkaline Phosphatase 62 U/L (38-126) 04/12/19 23:35 Creatine Kinase 50 U/L (30-135) 04/12/19 23:35 CK-MB (CK-2) 1.53 ng/mL (<4.55) 04/12/19 23:35 Troponin I < 0.012 ng/mL 04/12/19 23:35 Total Protein 6.6 g/dL (6.3-8.2) 04/12/19 23:35 Albumin 4.0 g/dL (3.5-5.0) 04/12/19 23:35 Urine Color STRAW 04/13/19 00:25 Urine Appearance CLEAR 04/13/19 00:25 Urine pH 6.0 (5.0-9.0) 04/13/19 00:25 Ur Specific [place] 1.006 04/13/19 00:25 Urine Protein NEGATIVE mg/dL (NEGATIVE) 04/13/19 00:25 Urine Glucose (UA) NEGATIVE mg/dL (NEGATIVE) 04/13/19 00:25 Urine Ketones NEGATIVE mg/dL (NEGATIVE) 04/13/19 00:25 Urine Blood SMALL (NEGATIVE) H 04/13/19 00:25 Urine Nitrite NEGATIVE (NEGATIVE) 04/13/19 00:25 Urine Bilirubin NEGATIVE (NEGATIVE) 04/13/19 00:25 Urine Urobilinogen NEGATIVE mg/dL (<2.0) 04/13/19 00:25 Ur Leukocyte Esterase TRACE (NEGATIVE) H 04/13/19 00:25 Urine WBC (Auto) 3 /HPF 04/13/19 00:25 Urine RBC (Auto) 1 /HPF 04/13/19 00:25 Urine Bacteria (Auto) TRACE /HPF 04/13/19 00:25 Squamous Epi Cells Auto 1 /HPF 04/13/19 00:25 Urine Mucus (Auto) RARE /LPF 04/13/19 00:25 Urine Ascorbic Acid NEGATIVE (NEGATIVE) 04/13/19 00:25 04/12/19 23:35 CK-MB (CK-2) 1.53 Troponin I < 0.012 Impressions: Chest X-Ray 04/12/19 23:22 IMPRESSION: 1. No acute pulmonary findings. 2. Right IJ port, tip in the SVC, as on prior exam. Head CT 04/12/19 23:22 IMPRESSION: 1. No acute hemorrhage or mass effect 2. Subtle 4 mm hypodensity in the posterior limb of the left internal capsule may represent an acute or subacute lacunar infarct. MRI would provide more definitive characterization. 3. Old basal ganglia infarcts and right occipital infarct, as seen on prior exam. Carotid Doppler Study 04/13/19 00:56 IMPRESSION: NO HEMODYNAMICALLY SIGNIFICANT STENOSIS. Head MRI 04/13/19 00:57 IMPRESSION: Sequela of chronic ischemia without an acute intracranial abnormality. EVIDENCE OF ACUTE STROKE: NO. Plan Plan of Treatment: The patient is instructed to follow-up with her primary care provider within 1 week. She is advised to follow-up with her oncologist previously scheduled. Take medications as prescribed. Return to the emergency department as needed for concerning symptoms. Time Spent: Greater than 30 Minutes Stroke Is this a Stroke Patient?: No Acute Heart Failure - Is this a Heart Failure Patient?: No
== END 2019-04-13 17:02 | disposition home or self-care (01) | DRG 309 ==
LOC: ER 23:21 → EH 04-13 01:27 → 3W 04-13 13:44
PROVIDERS: ADMIT Internal Medicine; ATTEND Internal Medicine
DX: R00.1 Bradycardia, unspecified (principal); G45.9 Transient cerebral ischemic attack, unspecified; C90.00 Multiple myeloma not having achieved remission; G81.94 Hemiplegia, unspecified affecting left nondominant side; R47.81 Slurred speech; I12.9 Hypertensive chronic kidney disease with stage 1 through stage 4 chronic kidney disease, or unspecified chronic kidney disease; N18.3 Chronic kidney disease, stage 3 (moderate); Z79.01 Long term (current) use of anticoagulants; Z79.51 Long term (current) use of inhaled steroids; Z79.899 Other long term (current) drug therapy
CPT/HCPCS: 36415; 70450; 70551; 71045; 80053; 81001; 82550; 82553; 82962; 84484; 85025; 85610; 85730; 93005; 93010; 93880; 99285; J3490

== ENCOUNTER 2019-05-04 07:38 | Day surgery (SDC) | payer MEDICARE ==
[2019-05-04 08:57] LABS: INTERNATIONAL RATION (INR) 0.96; PARTIAL THROMBOPLASTIN TIME 29.1 SEC (23.5-35.8); PROTHROMBIN TIME 12.8 SEC (11.4-15.4)
--- NOTE | 2019-05-04 10:38 | Operative Report ---
Operative Report DATE OF SURGERY: 05/04/19 Operative Report: The risks benefits and alternatives of the procedure explained to the patient in detail and informed consent is obtained.A GIF Olympus video scope was inserted into the patient's mouth and hypopharynx, the esophagus is identified intubated and insufflated ,the scope was then advanced through the esophagus stomach and duodenum, retroflexion maneuver is done, the esophagus stomach and first and second portions of the duodenum examined. PREOPERATIVE DIAGNOSIS: Melena, GI bleed POSTOPERATIVE DIAGNOSIS: Mild gastritis. Shallow biopsy obtained. No upper GI bleed noted. Need to consider colonoscopy OPERATION: EGD with biopsy SURGEON: SARAH THOMSON ANESTHESIA: LMAC TISSUE REMOVED OR ALTERED: As noted above. COMPLICATIONS: None. ESTIMATED BLOOD LOSS: None. INTRAOPERATIVE FINDINGS: As noted above. PROCEDURE: Patient tolerated the procedure well. No immediate postprocedure complications are noted. Patient is discharged in good condition. Discharge date 05/04/2019. Discharge diet: Regular. Discharge activity: Regular. 2 to 3-week follow-up to discuss findings. Patient is instructed to call the office or proceed to the emergency room should it be any further problems or questions. Consider outpatient colonoscopy.
[2019-05-04 12:48] VITALS: BP 144/52
== END 2019-05-04 11:00 | disposition home or self-care (01) ==
LOC: OROUT 07:38
PROVIDERS: ATTEND Internal Medicine Gastroenterology
DX: K29.50 Unspecified chronic gastritis without bleeding (principal); K92.1 Melena; D50.9 Iron deficiency anemia, unspecified; Z86.73 Personal history of transient ischemic attack (TIA), and cerebral infarction without residual deficits; C90.01 Multiple myeloma in remission; Z79.899 Other long term (current) drug therapy; Z79.01 Long term (current) use of anticoagulants
CPT/HCPCS: 43239; 36415; 85610; 85730; 88305 ×2; J2704; 731

== ENCOUNTER 2019-05-10 12:23 | Day surgery (SDC) | payer MEDICARE ==
[2019-05-10] MEDS ORDERED: PROPOFOL INJ 200 MG/20 ML VIAL IV ONE (12:49)
[2019-05-10 13:37] LABS: INTERNATIONAL RATION (INR) 0.98; PARTIAL THROMBOPLASTIN TIME 28.6 SEC (23.5-35.8)
--- NOTE | 2019-05-10 15:15 | Operative Report ---
Operative Report DATE OF SURGERY: 05/10/19 Operative Report: The risks, benefits and alternatives of the procedure including the risk of bleeding, perforation requiring surgery have been explained to the patient in detail and informed consent has been obtained. The patient is placed in a left, lateral decubital position. Timeout was called. Propofol medication is administered. Rectal examination is done which did not reveal any masses, tears or fissures. An Olympus videoscope was introduced into the patient's rectum. Scope was then carefully advanced all the way to the cecum. Cecum was identified by the usual anatomical landmarks including the ileocecal valve as well as the appendiceal office. Photodocumentation is obtained. Scope was then sequentially pulled back via the various segments of the colon including the ascending colon, hepatic flexure, transverse colon, splenic flexure, descending colon and finally in to the rectosigmoid portions of the colon. Retroflexion maneuvers performed. PREOPERATIVE DIAGNOSIS: GI bleed POSTOPERATIVE DIAGNOSIS: No active GI bleeding noted. Scope advanced all the way to the cecum. Diverticulosis. Internal hemorrhoids. Question if she had a limited diverticular bleed which has resolved OPERATION: Diagnostic colonoscopy SURGEON: SARAH THOMSON ANESTHESIA: LMAC TISSUE REMOVED OR ALTERED: None. COMPLICATIONS: None. ESTIMATED BLOOD LOSS: None. INTRAOPERATIVE FINDINGS: As noted above. PROCEDURE: Patient tolerated the procedure well. No immediate postprocedure complications are noted. Patient is discharged in good condition. Discharge date 05/10/2019. Discharge diet: Regular. Discharge activity: Regular. 2 to 3-week follow-up to discuss findings. Patient is instructed to call the office or proceed to the emergency room if there are any other problems or questions.
[2019-05-10 17:17] VITALS: BP 151/60
== END 2019-05-10 16:25 | disposition home or self-care (01) ==
LOC: OROUT 12:23
PROVIDERS: ATTEND Internal Medicine Gastroenterology
DX: K62.5 Hemorrhage of anus and rectum (principal); Z79.01 Long term (current) use of anticoagulants; K57.30 Diverticulosis of large intestine without perforation or abscess without bleeding; K64.8 Other hemorrhoids; Z79.899 Other long term (current) drug therapy
CPT/HCPCS: 45378; 36415; 85610; 85730; 00811; J2704; 811

== ENCOUNTER → 2019-11-04 | Outpatient (CLI) | payer MEDICARE ==
--- NOTE | 2019-11-04 17:28 | RADIOLOGY REPORT (SQ) ---
EXAM DESCRIPTION: VENOUS BILATERAL LOWER IMAGES COMPLETED DATE/TIME: 11/04/2019 4:45 pm REASON FOR STUDY: BLE PAIN/SWELLING M79.605 PAIN IN LEFT LEG M79.604 PAIN IN RIGHT LEG R22.43 LOC ALIZED SWELLING, MASS AND LUMP, LOWER LIMB, BILATE COMPARISON: None. TECHNIQUE: Dynamic and static mazariegos scale and color images acquired of both lower extremity venous sy stems. Selected spectral images acquired with additional compression and augmentation maneuvers. Imag es stored on PACS. LIMITATIONS: None. FINDINGS: RIGHT LEG COMMON FEMORAL AND FEMORAL: Normal phasicity, compression and augmentation. No visualized echogenic m aterial on mazariegos scale. No defects on color images. POPLITEAL: Normal compression and augmentation. No visualized echogenic material on mazariegos scale. No de fects on color images. CALF VESSELS: Normal compression and augmentation. No visualized echogenic material on mazariegos scale. No defects on color image. GSV AND SSV: Normal compression. No visualized echogenic material on mazariegos scale. No defects on color images. ANY DEEP VENOUS INSUFFICIENCY: Not evaluated. ANY EVIDENCE OF POPLITEAL CYST: No. OTHER: No other significant finding. LEFT LEG COMMON FEMORAL AND FEMORAL: Normal phasicity, compression and augmentation. No visualized echogenic m aterial on mazariegos scale. No defects on color images. POPLITEAL: Normal compression and augmentation. No visualized echogenic material on mazariegos scale. No de fects on color images. CALF VESSELS: Normal compression and augmentation. No visualized echogenic material on mazariegos scale. No defects on color images. GSV AND SSV: Normal compression. No visualized echogenic material on mazariegos scale. No defects on color images. ANY DEEP VENOUS INSUFFICIENCY: Not evaluated. ANY EVIDENCE POPLITEAL CYST: No. OTHER: No other significant finding. IMPRESSION: NO EVIDENCE DVT OR SVT IN EITHER LEG. TECHNICAL DOCUMENTATION: JOB ID: [id number] 2010 [email or web address]- All Rights Reserved Reading location - IP/workstation name: [email or web address]
== END ==
LOC: SP 13:03
PROVIDERS: ATTEND Internal Medicine
DX: M79.605 Pain in left leg (principal); M79.604 Pain in right leg; R22.43 Localized swelling, mass and lump, lower limb, bilateral
CPT/HCPCS: 93970

== ENCOUNTER → 2019-11-08 | Outpatient (CLI) | payer MEDICARE ==
--- NOTE | 2019-11-08 17:11 | RADIOLOGY REPORT (SQ) ---
EXAM DESCRIPTION: PET CT WHOLE BODY IMAGES COMPLETED DATE/TIME: 11/08/2019 3:36 pm REASON FOR STUDY: (C90.00)MULTIPLE MYELOMA NOT HAVING ACHIEVED REMISSION C90.00 MULTIPLE MYELOMA NO T HAVING ACHIEVED REMISSION COMPARISON: 06/13/2018 RADIONUCLIDE AND DOSE: 8.04 mCi F18 FDG The route of agent administration: Intravenous FASTING BLOOD SUGAR: 86 mg/dl CONTRAST TYPE AND DOSE: No CT contrast given. TECHNIQUE: Blood glucose level was verified. Above dose of FDG was injected intravenously. 2-D seg mented attenuation correction images were obtained through the entire body. Noncontrast CT images we re obtained for attenuation correction and fusion with emission images. CT images were performed wit hout oral or intravenous contrast and are not sensitive for parenchymal lesions. A series of overlap ping emission PET images were obtained. Images reviewed and manipulated at independent work station by the radiologist. Images stored on PACS. LIMITATIONS: None. FINDINGS: HEAD AND NECK: No areas of abnormal metabolic activity in the soft tissues of the head and neck. CHEST: No areas of abnormal metabolic activity in the chest. No acute intrathoracic findings. Right internal jugular based chest port with catheter tip at SVC. Incidentally noted aberrent right subcl matt mild dilation the aortic arch measuring up to 3.7 cm. No acute intrathoracic findings. ABDOMEN AND PELVIS: No areas of abnormal metabolic activity in the abdomen or pelvis. Expected physi ologic activity is present in the genitourinary system and bowel. Prior cholecystectomy, appendectom y and hysterectomy. No evidence of acute intra-abdominal/pelvic process. Stable non hypermetabolic lower pole exophytic intermediate density lesion, likely proteinaceous cyst but incompletely characte rize. Aortoiliac atherosclerosis. Scattered colonic diverticula. Decompressed urinary bladder. EXTREMITIES: No areas of abnormal metabolic activity in the soft tissues of the lower extremities. BONES: Heterogeneous uptake at the hands bilaterally, likely degenerative. No other Pathologic FDG u ptake within the visualized skeleton. No acute bony abnormality. No discrete lytic or blastic osseo us activity. ADDITIONAL CT FINDINGS: As above. OTHER: No other significant findings. IMPRESSION: 1. No pathologic skeletal uptake suggestive multiple myeloma. 2. No other areas of pathologic soft tissue uptake suspicious for malignancy. TECHNICAL DOCUMENTATION: JOB ID: [id number] 2010 [email or web address]- All Rights Reserved Reading location - IP/workstation name: [email or web address]
== END ==
LOC: RAD 10:02
PROVIDERS: ATTEND Internal Medicine
DX: C90.00 Multiple myeloma not having achieved remission (principal)
CPT/HCPCS: 78816; A9552

== ENCOUNTER → 2020-02-21 | Outpatient (CLI) | payer MEDICARE | LOC: OD 11:09 | PROVIDERS: ATTEND Internal Medicine | DX: C90.00 Multiple myeloma not having achieved remission (principal) | CPT/HCPCS: 36415; 86850; 86900; 86901 ==